=== PATIENT | female | born 1955 | race African-American/Black ===

== ENCOUNTER 2017-04-09 21:16 | Emergency (ER) | payer OTHER ==
[2017-04-09] MEDS ORDERED: FAMOTIDINE 20 MG TABLET PO ONE (23:46)
[2017-04-09] MEDS ORDERED: ASPIRIN 81 MG TABLET, CHEWABLE PO ONE (23:46)
--- NOTE | 2017-04-09 23:48 | ER Document Report ---
ED Cardiac - General Chief Complaint: Chest Pain Stated Complaint: CHEST PAIN Time Seen by Provider: 04/09/17 23:39 Notes: Patient is a 61-year-old female who comes emergency department for chief complaint of chest pain, she states she intermittently has pains in her chest almost daily but tonight while she was having her sleep study she felt a much sharper pain, she was given a dose of nitroglycerin, and she came to the emergency department. She states her pain is not sharp anymore and is now close to her baseline. She states the pain is mainly on the right side of her chest near the sternum and occasionally she will feel a radiation towards her right arm. She denies shortness of breath, injury, cough, fever. She had a stress test within the past month. She states she is uncertain if she has had a heart attack in the past, she does not smoke, she thinks her father had a heart attack. Past medical history of type 2 diabetes, hypertension, hyperlipidemia, obesity. TRAVEL OUTSIDE OF THE [place] IN LAST 30 DAYS: No - Related Data Allergies/Adverse Reactions: latex [Latex] Allergy (Verified 09/16/13 09:28) propoxyphene napsylate [From Darvocet-N 100] Allergy (Verified 09/16/13 09:28) Past Medical History - General Information source: Patient - Social History Smoking Status: Never Smoker Frequency of alcohol use: None Drug Abuse: None Lives with: Family Family History: Reviewed & Not Pertinent Patient has suicidal ideation: No Patient has homicidal ideation: No - Past Medical History Cardiac Medical History: Reports: Hx Hypertension Pulmonary Medical History: Reports: Hx Asthma Denies: Hx Tuberculosis Renal/ Medical History: Denies: Hx Peritoneal Dialysis GI Medical History: Reports: Hx Gastroesophageal Reflux Disease Past Surgical History: Reports: Hx Cholecystectomy, Hx Hysterectomy - complete - Immunizations Hx Diphtheria, Pertussis, Tetanus Vaccination: Yes Hx Pneumococcal Vaccination: 11/22/09 Review of Systems - Review of Systems Constitutional: No symptoms reported EENT: No symptoms reported Cardiovascular: See HPI Respiratory: No symptoms reported Gastrointestinal: No symptoms reported Genitourinary: No symptoms reported Female Genitourinary: No symptoms reported Musculoskeletal: No symptoms reported Skin: No symptoms reported Hematologic/Lymphatic: No symptoms reported Neurological/Psychological: No symptoms reported Physical Exam - Vital signs Vitals: Temp Pulse Resp BP Pulse Ox 98 F 98 20 144/75 H 95 04/09/17 21:29 04/09/17 21:29 04/09/17 21:29 04/09/17 21:29 04/09/17 21:29 Interpretation: Normal - General General appearance: Appears well In distress: None - Patient is alert and well-appearing - HEENT Head: Normocephalic, Atraumatic Eyes: Normal Conjunctiva: Normal Extraocular movements intact: Yes Eyelashes: Normal Pupils: PERRL Mouth/Lips: Normal Mucous membranes: Normal Pharynx: Normal Neck: Normal - Respiratory Respiratory status: No respiratory distress Chest status: Tender - There is mild anterior chest wall tenderness, slightly worse on the right side, no erythema, ecchymosis, or other abnormalities noted Breath sounds: Normal. No: Decreased air movement, Wheezing Chest palpation: Normal - Cardiovascular Rhythm: Regular. No: Tachycardia Heart sounds: Normal auscultation, S1 appreciated, S2 appreciated Murmur: No - Abdominal Inspection: Normal Distension: No distension Bowel sounds: Normal Tenderness: Nontender. No: Tender, Guarding Organomegaly: No organomegaly - Back Back: Normal, Nontender. No: Tender - Extremities General upper extremity: Normal inspection, Nontender, Normal ROM, Normal strength General lower extremity: Normal inspection, Nontender, Normal ROM, Normal strength - Neurological Neuro grossly intact: Yes Cognition: Normal Orientation: AAOx4 [place] Coma Scale Eye Opening: Spontaneous [place] Coma Scale Verbal: Oriented [place] Coma Scale Motor: Obeys Commands Yovani Coma Scale Total: 15 Speech: Normal Motor strength normal: LUE, RUE, LLE, RLE Sensory: Normal - Psychological Associated symptoms: Normal affect, Normal mood - Skin Skin Temperature: Warm Skin Moisture: Dry Skin Color: Normal Course - Re-evaluation Re-evalutation: EKG shows sinus rhythm with very slightly inverted T-wave in isolated lead to inferiorly, no consecutive T-wave inversions, no ST segment abnormalities, no other abnormalities noted. No comparison EKG. CBC, chemistry unremarkable, initial set of cardiac enzymes is negative. Chest x-ray unremarkable. On reexamination patient sleeping and easily aroused, denies any current complaints. Discussed with Dr. Razo. Repeat troponin also negative. On reevaluation patient states she feels "great ", has no complaints. 04/10/17 04:15 I called and spoke with patient's blacktop paver operator, Dr. Gloria, discussed HPI, discussed plans for patient to have a cardiac catheterization in about a week for workup of chest pains, discussed EKG, 2 sets of negative cardiac enzymes. He states that because of patient's negative workup that she can follow-up with him on Wednesday and keep her current scheduled plan. I discussed with patient, she states she feels great now, has no pain, that she wants to go home, that she is satisfied with workup and that she will follow-up on Wednesday. - Vital Signs Vital signs: Temp Pulse Resp BP Pulse Ox 98 F 98 17 118/56 L 98 04/09/17 21:29 04/09/17 21:29 04/10/17 04:01 04/10/17 04:01 04/10/17 04:01 - Laboratory Result Diagrams: 04/10/17 00:39 04/10/17 00:39 Laboratory results interpreted by me: 04/10/17 00:39 Hgb 11.6 L MCV 73 L MCH 23.5 L RDW 16.9 H Discharge - Discharge Clinical Impression: Chest pain Qualifiers: Chest pain type: unspecified Qualified Code(s): R07.9 - Chest pain, unspecified Condition: Stable Disposition: HOME, SELF-CARE Additional Instructions: Your workup today does not show any acute abnormality. Discussed with Dr. Gloria, please follow-up with him on Wednesday, keep your appointment for your cardiac catheterization as planned. Return to emergency department for any concerning or worsening symptoms. Referrals: CIRA HORNE MD [Primary Care Provider] - Follow up as needed
[2017-04-10 00:49] LABS: ABSOLUTE BASOPHILS # (AUTO) 0.1 10^3/uL (0.0-0.2); ABSOLUTE EOSINOPHILS # (AUTO) 0.2 10^3/uL (0.0-0.6); ABSOLUTE LYMPHOCYTES (AUTO) 2.4 10^3/uL (0.5-4.7); ABSOLUTE MONOCYTES (AUTO) 0.7 10^3/uL (0.1-1.4); ABSOLUTE NEUT (AUTO) 6.9 10^3/uL (1.7-8.2); BASOPHILS % (AUTO) 0.7 % (0-2); EOSINOPHILS % (AUTO) 2.1 % (0-6); HEMATOCRIT 36.1 % (36.0-47.0); HEMOGLOBIN 11.6 g/dL (12.0-15.5); HGB HCT DIFFERENCE -1.3; LYMPHOCYTES % (AUTO) 23.7 % (13-45); MEAN CORPUSCULAR HEMOGLOBIN 23.5 pg (27.0-33.4); MEAN CORPUSCULAR VOLUME 73 fl (80-97); MONOCYTES % (AUTO) 6.9 % (3-13); RED BLOOD COUNT 4.91 10^6/uL (3.72-5.28); RED CELL DISTRIBUTION WIDTH 16.9 % (11.5-14.0); SEGMENTED NEUTROPHILS % (AUTO) 66.6 % (42-78); WHITE BLOOD COUNT 10.4 10^3/uL (4.0-10.5)
[2017-04-10 01:02] LABS: ALANINE AMINOTRANSFERASE 34 U/L (9-52); ALBUMIN 3.8 g/dL (3.5-5.0); ALKALINE PHOSPHATASE 89 U/L (38-126); ANION GAP 13 (5-19); ASPARTATE AMINO TRANSFERASE 17 U/L (14-36); BILIRUBIN,DIRECT 0.3 mg/dL (0.0-0.4); BILIRUBIN,TOTAL 0.4 mg/dL (0.2-1.3); BLOOD UREA NITROGEN 18 mg/dL (7-20); CALCIUM 9.7 mg/dL (8.4-10.2); CARBON DIOXIDE 27 mmol/L (22-30); CHLORIDE 102 mmol/L (98-107); CREATINE KINASE 83 U/L (30-135); CREATININE RESULT 0.84 mg/dL (0.52-1.25); GLUCOSE 96 mg/dL (75-110); POTASSIUM 3.7 mmol/L (3.6-5.0); SODIUM 141.8 mmol/L (137-145); TOTAL PROTEIN 6.8 g/dL (6.3-8.2)
[2017-04-10 01:13] LABS: CREATINE KINASE MB 0.49 ng/mL (<4.55)
[2017-04-10 01:16] LABS: TROPONIN I < 0.012 ng/mL
[2017-04-10 06:09] VITALS: BP 130/73
--- NOTE | 2017-04-10 17:48 | EKG REPORT ---
SEVERITY:- BORDERLINE ECG - SINUS RHYTHM BORDERLINE T ABNORMALITIES, INFERIOR LEADS : Confirmed by: Jessica Murillo MD 10-Apr-2017 17:47:41
== END 2017-04-10 05:19 | disposition home or self-care (01) ==
LOC: ER 21:16
DX: R07.9 Chest pain, unspecified (principal); E66.9 Obesity, unspecified; I10 Essential (primary) hypertension; J45.909 Unspecified asthma, uncomplicated; E11.9 Type 2 diabetes mellitus without complications; Z91.040 Latex allergy status; Z90.49 Acquired absence of other specified parts of digestive tract; Z90.710 Acquired absence of both cervix and uterus
CPT/HCPCS: 36415; 71010; 80053; 82550; 82553; 84484; 85025; 93005; 93010; 99285

== ENCOUNTER 2017-11-13 16:34 | Emergency (ER) | payer OTHER ==
[2017-11-13] MEDS ORDERED: OXYCODONE-ACETAMINOPHEN 5-325 MG TABLET PO ONE (17:37)
--- NOTE | 2017-11-13 17:42 | ER Document Report ---
ED Extremity Problem, Lower - General Chief Complaint: Ankle Injury Stated Complaint: FALL LEFT ANKLE INJURY Time Seen by Provider: 11/13/17 17:27 Mode of Arrival: Wheelchair Information source: Patient Notes: 62-year-old female presents to ED for complaint of left ankle and foot pain after she stepped on a Lego block in the floor twisting her ankle falling down. She states she knows she takes blood pressure medicine and cholesterol medicine reflux medicine sinus medicine Percocet Flexeril but she does not know the names of most of her medicine and does not know the doses of her medications. She states she did not bring them with her she does know she takes Claritin and metformin but that does not know the doses. She also takes a purple inhaler for her asthma but does not know the dose or the name of it. TRAVEL OUTSIDE OF THE [place] IN LAST 30 DAYS: No - HPI Patient complains to provider of: Injury, Pain, Swelling Location: Ankle, Foot, Leg Occurred: Just prior to arrival Where: Home, Indoors Onset/Duration: Worse Quality of pain: Throbbing Severity: Severe Pain Level: 5 Context: Fell, Twisted Recent injury: Yes Associated symptoms: Painful ambulation Exacerbated by: Hanging down, Movement, Walking Relieved by: Nothing - Related Data Allergies/Adverse Reactions: latex [Latex] Allergy (Verified 11/13/17 16:36) propoxyphene napsylate [From Darvocet-N 100] Allergy (Verified 11/13/17 16:36) Past Medical History - General Information source: Patient - Social History Smoking Status: Never Smoker Cigarette use (# per day): No Chew tobacco use (# tins/day): No Smoking Education Provided: No Frequency of alcohol use: None Drug Abuse: None Lives with: Family Family History: Reviewed & Not Pertinent Patient has suicidal ideation: No Patient has homicidal ideation: No - Past Medical History Cardiac Medical History: Reports: Hx Hypercholesterolemia, Hx Hypertension Pulmonary Medical History: Reports: Hx Asthma, Hx Bronchitis, Hx Pneumonia EENT Medical History: Reports: None Neurological Medical History: Reports: None Endocrine Medical History: Reports: Hx Diabetes Mellitus Type 2 Renal/ Medical History: Reports: None Malignancy Medical History: Reports: None GI Medical History: Reports: Hx Gastroesophageal Reflux Disease, Hx Hiatal Hernia, Hx Colonoscopy, Hx Endoscopy Musculoskeltal Medical History: Reports Hx Arthritis, Reports Hx Musculoskeletal Deformity, Reports Hx Musculoskeletal Trauma Psychiatric Medical History: Reports: None Traumatic Medical History: Reports: None Infectious Medical History: Reports: None Past Surgical History: Reports: Hx Cholecystectomy, Hx Hysterectomy - complete - Immunizations Hx Diphtheria, Pertussis, Tetanus Vaccination: Yes Hx Pneumococcal Vaccination: 11/22/09 Review of Systems - Review of Systems Constitutional: No symptoms reported EENT: No symptoms reported Cardiovascular: No symptoms reported Respiratory: No symptoms reported Gastrointestinal: No symptoms reported Genitourinary: No symptoms reported Female Genitourinary: No symptoms reported Musculoskeletal: Ankle swelling - Ankle foot and lower leg swelling pain Skin: No symptoms reported Hematologic/Lymphatic: No symptoms reported Neurological/Psychological: No symptoms reported -: Yes All other systems reviewed and negative Physical Exam - Vital signs Vitals: Temp Pulse Resp BP Pulse Ox 98.4 F 93 18 138/70 H 96 11/13/17 16:38 11/13/17 16:38 11/13/17 16:38 11/13/17 16:38 11/13/17 16:38 Interpretation: Normal - General General appearance: Appears well, Alert - HEENT Head: Normocephalic, Atraumatic Eyes: Normal Pupils: PERRL - Respiratory Respiratory status: No respiratory distress Chest status: Nontender Breath sounds: Normal Chest palpation: Normal - Cardiovascular Rhythm: Regular Heart sounds: Normal auscultation Murmur: No - Abdominal Inspection: Normal Distension: No distension Bowel sounds: Normal Tenderness: Nontender Organomegaly: No organomegaly - Back Back: Normal, Nontender - Extremities General upper extremity: Normal inspection, Nontender, Normal color, Normal ROM , Normal temperature General lower extremity: Normal color, Normal temperature Calf: Tender, Ecchymosis Ankle: Tender, Ecchymosis, Edema, Limited ROM, Unable to bear weight Foot: Tender, Ecchymosis, Edema - Neurological Neuro grossly intact: Yes Cognition: Normal Orientation: AAOx4 [place] Coma Scale Eye Opening: Spontaneous Yovani Coma Scale Verbal: Oriented [place] Coma Scale Motor: Obeys Commands [place] Coma Scale Total: 15 Speech: Normal Motor strength normal: LUE, RUE, LLE, RLE Sensory: Normal - Psychological Associated symptoms: Normal affect, Normal mood - Skin Skin Temperature: Warm Skin Moisture: Dry Skin Color: Normal Course - Re-evaluation Re-evalutation: 11/13/17 19:[address] Shaw who suggested posterior ankle splint. Patient is on pain management and has Percocet at home. She was given Percocet while in the emergency room. Her ankle has a posterior splint applied. Patient is been given instructions for elevation ice and to follow-up with the orthopedics on Wednesday by telephone to schedule a follow-up appointment. - Vital Signs Vital signs: Temp Pulse Resp BP Pulse Ox 98.2 F 93 18 157/86 H 95 11/13/17 19:14 11/13/17 19:14 11/13/17 19:14 11/13/17 19:14 11/13/17 19:14 - Diagnostic Test Radiology reviewed: Image reviewed, Reports reviewed Procedures - Immobilization Left Ankle Time completed: 19:01 Immobilizer type: Posterior ankle Performed by: PCT Post-Proc Neuro Vasc Exam: Normal Alignment checked and good: Yes Discharge - Discharge Clinical Impression: Fracture of distal fibula Qualifiers: Encounter type: initial encounter Fracture type: closed Fracture morphology: unspecified fracture morphology Laterality: left Qualified Code(s): S82.832A - Other fracture of upper and lower end of left fibula, initial encounter for closed fracture Medial malleolar fracture Qualifiers: Encounter type: initial encounter Fracture type: closed Fracture alignment: nondisplaced Laterality: left Qualified Code(s): S82.55XA - Nondisplaced fracture of medial malleolus of left tibia, initial encounter for closed fracture HTN (hypertension) Qualifiers: Hypertension type: unspecified Qualified Code(s): I10 - Essential (primary) hypertension Condition: Stable Disposition: HOME, SELF-CARE Additional Instructions: Fracture of Distal Fibula You have a fracture at the end of the fibula, the smaller bone in the lower leg. The fracture is across the bony bump on the outer side of the ankle. This fracture will usually heal well, but must be protected from the pull of ligaments and tendons at the ankle. If this fracture rotates out of position (or is felt likely to rotate), it must be operated on. Initially, the extremity should be kept elevated, with ice packs applied frequently. This fracture is usually treated with a cast or walking boot. If a walking boot has been selected, it's critical that it NOT be removed without the doctor's approval, not even for sleeping or baths. Healing of this fracture takes about four to eight weeks. Younger patients heal more quickly. An X-ray is usually required during healing to check for complications and to assess healing. Call the doctor or return at once if there is severe swelling, increasing pain, or numbness in the foot. You also have a medial malleolus fracture of the tibia. I have given you the x- ray reports on this fractures. SPLINT PRECAUTIONS: A splint has been placed. This will protect the area while healing begins. Your problem does NOT normally require a cast. It MUST, however, be held still! Keep the splint on ALL THE TIME until instructed to remove it by the doctor. As you begin to use the area, be careful. You shouldn't do anything which causes discomfort -- you may disturb the injury even with the splint in place. After the initial period of rest and elevation, if splint does not prevent pain when you move, come back. You may require placement of a different splint , or a cast. If there is unexpected severe pain, or numbness, discoloration, or swelling beyond the splint, you should return at once. If you feel that the splint has broken or become loose, come back. USE OF CRUTCHES: The doctor has recommended that you not bear weight at this time. You will need to use crutches. Adjust the crutches so the tops come to about two inches under the armpit while you are standing upright. Use your hands -- not your armpits -- to support your weight. To get into a chair, support yourself with one crutch on the injured side. Hold the chair with the other hand, then lower yourself while putting all your weight on the good leg. Going up stairs is `good leg up, step up, then bring up crutches and bad leg.' Down stairs is `bad leg and crutches down, then bring good leg down.' If you develop numbness or swelling in an arm or hand, you are using the crutches incorrectly. Return if you are having any problems with the crutches. ICE & ELEVATION: Apply ice packs frequently against the painful area. Many different schedules are recommended, such as "20 minutes on, 20 minutes off" or "one hour ice, two hours rest." If you need to work, you may need to go longer between ice treatments. You should plan to have the area ice packed AT LEAST one- fourth of the time. The ice should be applied over the wrap, tape, or splint, or over a layer of cloth -- not directly against the skin. Some ice bags have a built-in cloth and can be put directly on the skin. Your injured part should be elevated as much as possible over the next 48 hours. Try to keep the injury above the level of the heart. Avoid use of the injured area. Elevation and rest will decrease the swelling. USE OF [id number] IBUPROFEN: Ibuprofen (Advil, Nuprin, Medipren, Motrin IB) is a medication for fever and pain control. In addition, it has anti- inflammatory effects which may be beneficial, especially in the treatment of injuries. It's best to take ibuprofen with food. Persons with ulcer disease or allergy to aspirin should notify their physician of this before taking ibuprofen. Ibuprofen can be given every four to six hours, for a total of four doses daily. Age Pain or fever dose Antiinflammatory dose 6-8 yr 200 mg (1 tab) 200 mg (1 tab) 9-11 yr 200 mg (1 tab) 200-400 mg (1-2 tab) 11-14 yr 200-400 mg (1-2 tab) 400 mg (2 tab) 15-adult 400 mg (2 tab) 600 mg (3 tab) ORAL NARCOTIC MEDICATION: You have been given a Percocet for pain control. Take your medication you have at home which is also Percocet for your pain. This medication is a narcotic. It's best taken with food, as nausea can result if taken on an empty stomach. Don't operate machinery or drive within six hours of taking this medication. Do not combine this medicine with alcohol, or with any medication which can cause sedation (such as cold tablets or sleeping pills) unless you get permission from the physician. Narcotics tend to cause constipation. If possible, drink plenty of fluids and eat a diet high in fiber and fruits. Please be aware that prescription narcotics also have the potential for abuse. People become addicted to these medications because of the general sense of wellbeing that they induce. This feeling along with a significant reduction in tension, anxiety, and aggression provides a stimulating seductive quality to these drugs. Once your pain is under control, we encourage you to discard your unused narcotics. FOLLOW-UP CARE: If you have been referred to a physician for follow-up care, call the physician s office for an appointment as you were instructed or within the next two days. If you experience worsening or a significant change in your symptoms, notify the physician immediately or return to the Emergency Department at any time for re-evaluation. Forms: Elevated Blood Pressure Referrals: CIRA HORNE MD [Primary Care Provider] - Follow up as needed AUDIE AHMADI DO [ACTIVE STAFF] - Follow up as needed
--- NOTE | 2017-11-13 18:29 | RADIOLOGY REPORT (SQ) ---
EXAM DESCRIPTION: FOOT LEFT COMPLETE COMPLETED DATE/TIME: 11/13/2017 6:15 pm REASON FOR STUDY: fall injury to left foot and ankle metatarsal tend COMPARISON: None. NUMBER OF VIEWS: Three views. TECHNIQUE: AP, lateral and oblique radiographic images acquired of the left foot. LIMITATIONS: None. FINDINGS: MINERALIZATION: Osteopenia. BONES: Fracture of the medial malleolus. JOINTS: No effusions. SOFT TISSUES: No soft tissue swelling. No foreign body. OTHER: No other significant finding. IMPRESSION: Ankle fracture. TECHNICAL DOCUMENTATION: JOB ID: [id number] [employer]- All Rights Reserved
--- NOTE | 2017-11-13 18:30 | RADIOLOGY REPORT (SQ) ---
EXAM DESCRIPTION: ANKLE LEFT COMPLETE COMPLETED DATE/TIME: 11/13/2017 6:16 pm REASON FOR STUDY: fall injury to left foot and ankle metatarsal tend COMPARISON: None. NUMBER OF VIEWS: Three views. TECHNIQUE: AP, lateral, and oblique radiographic images acquired of the left ankle. LIMITATIONS: None. FINDINGS: There are nondisplaced fractures of the medial malleolus and distal fibula at level of syn desmosis. IMPRESSION: Fractures of the distal fibula and medial malleolus. TECHNICAL DOCUMENTATION: JOB ID: [id number] [email or web address]- All Rights Reserved
[2017-11-13 19:17] VITALS: BP 157/86
== END 2017-11-13 19:15 | disposition home or self-care (01) ==
LOC: ER 16:34
DX: S82.55XA Nondisplaced fracture of medial malleolus of left tibia, initial encounter for closed fracture (principal); S82.832A Other fracture of upper and lower end of left fibula, initial encounter for closed fracture; W18.31XA Fall on same level due to stepping on an object, initial encounter; Y93.G3 Activity, cooking and baking; Y92.000 Kitchen of unspecified non-institutional (private) residence as the place of occurrence of the external cause; I10 Essential (primary) hypertension; E78.00 Pure hypercholesterolemia, unspecified; K21.9 Gastro-esophageal reflux disease without esophagitis; J45.909 Unspecified asthma, uncomplicated; E11.9 Type 2 diabetes mellitus without complications; Z79.84 Long term (current) use of oral hypoglycemic drugs; Z79.891 Long term (current) use of opiate analgesic; Z79.899 Other long term (current) drug therapy; Z91.040 Latex allergy status; Z88.5 Allergy status to narcotic agent
CPT/HCPCS: 99283

== ENCOUNTER 2018-02-13 17:15 | Emergency (ER) | payer OTHER ==
--- NOTE | 2018-02-13 17:56 | RADIOLOGY REPORT (SQ) ---
EXAM DESCRIPTION: WRIST RIGHT 3 VIEWS COMPLETED DATE/TIME: 02/13/2018 5:39 pm REASON FOR STUDY: fall COMPARISON: None. NUMBER OF VIEWS: Three views. TECHNIQUE: AP, lateral, and oblique radiographic images acquired of the right wrist. LIMITATIONS: None. FINDINGS: MINERALIZATION: Normal. BONES: No acute fracture or dislocation. No worrisome bone lesions. Normal alignment. SOFT TISSUES: Diffuse dorsal soft tissue swelling. No foreign body. OTHER: Osteoarthritis at the 1st carpometacarpal joint. IMPRESSION: Dorsal soft tissue swelling. No acute fracture. TECHNICAL DOCUMENTATION: JOB ID: [id number] [employer]- All Rights Reserved Reading location - IP/workstation name: [email or web address]
--- NOTE | 2018-02-13 17:58 | RADIOLOGY REPORT (SQ) ---
EXAM DESCRIPTION: CT HEAD WITHOUT COMPLETED DATE/TIME: 02/13/2018 5:48 pm REASON FOR STUDY: fall COMPARISON: None. TECHNIQUE: Axial images acquired through the brain without intravenous contrast. Images reviewed wi th bone, brain and subdural windows. Images stored on PACS. All CT scanners at this facility use dose modulation, iterative reconstruction, and/or weight based d osing when appropriate to reduce radiation dose to as low as reasonably achievable (ALARA). [facility]: Dose Right [facility]: CareDose [facility]: Dose Right [facility]: Teradose 4D [facility]: [facility] [employer] RADIATION DOSE: CT Rad equipment meets quality standard of care and radiation dose reduction techniq ues were employed. CTDIvol: 64.6 mGy. DLP: 1163 mGy-cm. mGy. LIMITATIONS: None. FINDINGS: VENTRICLES: Normal size and contour. CEREBRUM: No masses. No hemorrhage. No midline shift. No evidence for acute infarction. Normal gra y/white matter differentiation. No areas of low density in the white matter. CEREBELLUM: No masses. No hemorrhage. No alteration of density. No evidence for acute infarction. EXTRAAXIAL SPACES: No fluid collections. No masses. ORBITS AND GLOBE: No intra- or extraconal masses. Normal contour of globe without masses. CALVARIUM: No fracture. PARANASAL SINUSES: No fluid or mucosal thickening. SOFT TISSUES: No mass or hematoma. OTHER: No other significant finding. IMPRESSION: NORMAL BRAIN CT WITHOUT CONTRAST. EVIDENCE OF ACUTE STROKE: NO. COMMENT: Quality ID # [id number]: Final reports with documentation of one or more dose reduction techniques (e.g., Automated exposure control, adjustment of the mA and/or kV according to patient size, use of iterative reconstruction technique) TECHNICAL DOCUMENTATION: JOB ID: [id number] [employer]- All Rights Reserved Reading location - IP/workstation name: [email or web address]
--- NOTE | 2018-02-13 18:20 | ER Document Report ---
ED General - General Chief Complaint: Fall Stated Complaint: FALL HEAD PAIN Time Seen by Provider: 02/13/18 17:21 TRAVEL OUTSIDE OF THE [place] IN LAST 30 DAYS: No - HPI Patient complains to provider of: Fall Notes: Patient coming in has a walking boot on the left foot states she was at a shopping mall when she was trying to push a cart and was not moving and then eventually put an unfortunate that the court moved lost her balance fell backwards hitting her head and injuring her right wrist. Patient denies any loss consciousness states she did feel dizzy and lightheaded after hitting her head. Patient currently states the back denies head pain chest pain passing out abdominal pain. Patient resting comfortably upon my evaluation - Related Data Allergies/Adverse Reactions: latex [Latex] Allergy (Verified 02/13/18 17:21) propoxyphene napsylate [From Darvocet-N 100] Allergy (Verified 02/13/18 17:21) Past Medical History - Social History Smoking Status: Never Smoker Chew tobacco use (# tins/day): No Frequency of alcohol use: None Drug Abuse: None Family History: Reviewed & Not Pertinent Patient has suicidal ideation: No Patient has homicidal ideation: No - Past Medical History Cardiac Medical History: Reports: Hx Hypercholesterolemia, Hx Hypertension Pulmonary Medical History: Reports: Hx Asthma, Hx Bronchitis, Hx Pneumonia Denies: Hx Tuberculosis Endocrine Medical History: Reports: Hx Diabetes Mellitus Type 2 Renal/ Medical History: Denies: Hx Peritoneal Dialysis GI Medical History: Reports: Hx Gastroesophageal Reflux Disease, Hx Hiatal Hernia, Hx Colonoscopy, Hx Endoscopy Musculoskeltal Medical History: Reports Hx Arthritis, Reports Hx Musculoskeletal Deformity, Reports Hx Musculoskeletal Trauma Past Surgical History: Reports: Hx Cholecystectomy, Hx Hysterectomy - Immunizations Hx Diphtheria, Pertussis, Tetanus Vaccination: Yes Hx Pneumococcal Vaccination: 11/22/09 Review of Systems - Review of Systems Constitutional: Other - Hip pain wrist pain EENT: No symptoms reported Cardiovascular: No symptoms reported Respiratory: No symptoms reported Gastrointestinal: No symptoms reported Genitourinary: No symptoms reported Female Genitourinary: No symptoms reported Musculoskeletal: No symptoms reported Skin: No symptoms reported Hematologic/Lymphatic: No symptoms reported Neurological/Psychological: No symptoms reported -: Yes All other systems reviewed and negative Physical Exam - Vital signs Vitals: Temp Pulse Resp BP Pulse Ox 98.9 F 95 16 147/70 H 98 03/25/18 17:18 02/13/18 17:18 02/13/18 17:18 02/13/18 17:18 02/13/18 17:18 Interpretation: Normal - General General appearance: Appears well, Alert - HEENT Head: Normocephalic, Atraumatic Eyes: Normal Pupils: PERRL Neck: Other - No midline tenderness clear by Nexus - Respiratory Respiratory status: No respiratory distress Chest status: Nontender Breath sounds: Normal Chest palpation: Normal - Cardiovascular Rhythm: Regular Heart sounds: Normal auscultation Murmur: No - Abdominal Inspection: Normal Distension: No distension Bowel sounds: Normal Tenderness: Nontender Organomegaly: No organomegaly - Back Back: Normal, Nontender - Extremities General upper extremity: Tender, Normal color, Normal ROM, Normal temperature. No: Normal inspection - Slight swelling to the right wrist tenderness to palpation along the dorsum of the right wrist otherwise extremity examination normal left unaffected General lower extremity: Normal inspection, Nontender, Normal color, Normal ROM , Normal temperature, Normal weight bearing. No: Lucia's sign - Neurological Neuro grossly intact: Yes Cognition: Normal Orientation: AAOx4 Yovani Coma Scale Eye Opening: Spontaneous Yovani Coma Scale Verbal: Oriented Yovani Coma Scale Motor: Obeys Commands Yovani Coma Scale Total: 15 Speech: Normal Motor strength normal: LUE, RUE, LLE, RLE Sensory: Normal - Psychological Associated symptoms: Normal affect, Normal mood - Skin Skin Temperature: Warm Skin Moisture: Dry Skin Color: Normal Course - Re-evaluation Re-evalutation: 02/13/18 23:47 No signs of acute injury on radiographical studies. Patient will be discharged on Tylenol Motrin for pain control. - Vital Signs Vital signs: Temp Pulse Resp BP Pulse Ox 98.6 F 84 18 128/76 H 100 02/13/18 18:31 02/13/18 18:31 02/13/18 18:31 02/13/18 18:31 02/13/18 18:31 Discharge - Discharge Clinical Impression: Right wrist pain Head pain Qualifiers: Headache type: unspecified Headache chronicity pattern: unspecified pattern Intractability: not intractable Qualified Code(s): R51 - Headache Condition: Good Disposition: HOME, SELF-CARE Instructions: Contusion ([facility]), Head Injury Precautions ([facility]), Ice & Elevation ( [facility]), Wrist Sprain ([facility]) Additional Instructions: Your x-rays and head CT are negative today. More likely having wrist sprain I would recommend using the splint to be provided with you here in the ER for comfort if he did not get any relief of her pain or comfort while wearing splint while out and about the community he did not have to wear it. I recommend follow-up with your primary care physician in 1 week if he continued to have pain for another x-ray. Tylenol Motrin for pain control he may also elevate place ice packs warm packs on your wrist. Referrals: CIRA HORNE MD [Primary Care Provider] - Follow up in 1 week
[2018-02-13 18:32] VITALS: BP 128/76
== END 2018-02-13 18:32 | disposition home or self-care (01) ==
LOC: ER 17:15
DX: M25.531 Pain in right wrist (principal); M25.431 Effusion, right wrist; R51 Headache; M25.559 Pain in unspecified hip; W18.39XA Other fall on same level, initial encounter; Y93.89 Activity, other specified; Y92.59 Other trade areas as the place of occurrence of the external cause; Z91.040 Latex allergy status; Z88.5 Allergy status to narcotic agent; I10 Essential (primary) hypertension; J45.909 Unspecified asthma, uncomplicated; E11.9 Type 2 diabetes mellitus without complications
CPT/HCPCS: 70450; 99284

== ENCOUNTER → 2018-12-27 | Outpatient (CLI) | payer MEDICARE ==
--- NOTE | 2018-12-27 11:11 | WOMENS IMAGING REPORT ---
EXAM DESCRIPTION: BILAT SCREENING MAMMO W/CAD COMPLETED DATE/TIME: 12/27/2018 10:33 am REASON FOR STUDY: ROUTINE BILATERAL SCREENING,Z12.31 Z12.31 ENCNTR SCREEN MAMMOGRAM FOR MALIGNANT N EOPLASM OF EVANGELINA COMPARISON: 2012 TECHNIQUE: Standard craniocaudal and mediolateral oblique views of each breast recorded using [employer] [place] l acquisition. LIMITATIONS: None. FINDINGS: Findings present which are benign by mammographic criteria. No suspicious masses, calcifi cations or architectural distortion. Pertinent benign findings: Left cyst. Read with the assistance of CAD. .[facility] - R2 Cenova Version 1.3 .[facility] - R2 Cenova Version 2.1 .[facility] - R2 Cenova Version 2.4 .[facility] - R2 Cenova Version 2.4 .[facility] - R2 [employer] Superintendent Version 9.2 Benign mammographic findings may include one or more of the following: Smooth masses, popcorn/rim/co arse calcifications, asymmetries, post-procedure changes, and lesions with long-standing stability. IMPRESSION: BENIGN MAMMOGRAPHIC FINDINGS. BIRADS 2 BREAST DENSITY: a. The breasts are almost entirely fatty. BIRAD: 2 BENIGN FINDING(S) RECOMMENDATION: ROUTINE SCREENING COMMENT: The patient has been notified of the results by letter per SA requirements. Additional no tification policies are in place for contacting patient with suspicious or incomplete findings. Quality ID #[id number]: The [employer] recommends an annual screening mammogram for women aged 40 years or over. This facility utilizes a reminder system to ensure that all patients receive reminder letters, and/or direct phone calls for appointments. This includes reminders for routine scr eening mammograms, diagnostic mammograms, or other Breast Imaging Interventions when appropriate. Th is patient will be placed in the appropriate reminder system. The [employer] (ACR) has developed recommendations for screening MRI of the breast s in certain patient populations, to be used in conjunction with mammography. Breast MRI surveillanc e may be appropriate for women with more than 20% lifetime risk of developing breast cancer as deter mined by genetic testing, significant family history of the disease, or history of mantle radiation f or Hodgkins Disease. ACR Practice Guidelines 2008. TECHNICAL DOCUMENTATION: FINDING NUMBER: (1) ASSESSMENT: (1) JOB ID: [id number] [employer]- All Rights Reserved Reading location - IP/workstation name: [email or web address]
== END ==
LOC: WI 10:08
PROVIDERS: ATTEND Internal Medicine
DX: Z12.31 Encounter for screening mammogram for malignant neoplasm of breast (principal)
CPT/HCPCS: 77067

== ENCOUNTER 2019-02-28 21:24 | Emergency (ER) | payer MEDICARE ==
[2019-02-28 21:56] VITALS: BP 139/75
== END 2019-03-01 01:01 | disposition left against medical advice (07) ==
LOC: ER 21:24
DX: Z53.21 Procedure and treatment not carried out due to patient leaving prior to being seen by health care provider (principal)

== ENCOUNTER → 2019-03-03 | Outpatient (CLI) | payer MEDICARE ==
--- NOTE | 2019-03-03 08:57 | WOMENS IMAGING REPORT ---
EXAM DESCRIPTION: U/S PELVIS NON-OB LIMITED COMPLETED DATE/TIME: 03/03/2019 8:37 am REASON FOR STUDY: R10.84 GENERALIZED ABDOMINAL PAIN R10.2 PELVIC AND PERINEAL PAINR10.30 LOWER ABD OMINAL PAIN, UNSPECIFIED COMPARISON: 05/14/2016. TECHNIQUE: Dynamic and static grayscale images acquired of the pelvis via transabdominal approach an d recorded on PACS. Additional selected color Doppler and spectral images recorded. LIMITATIONS: None. FINDINGS: The uterus and ovaries are surgically absent. No solid mass or fluid collection. Limited images of the bladder unremarkable. IMPRESSION: NO SONOGRAPHIC ABNORMALITY IN THE PELVIS. TECHNICAL DOCUMENTATION: JOB ID: [id number] [employer]- All Rights Reserved Rev-04/08 Reading location - IP/workstation name: [email or web address]
--- NOTE | 2019-03-03 08:59 | WOMENS IMAGING REPORT ---
EXAM DESCRIPTION: U/S ABDOMEN TOTAL COMPLETED DATE/TIME: 03/03/2019 8:37 am REASON FOR STUDY: R10.84 GENERALIZED ABDOMINAL PAIN R10.2 PELVIC AND PERINEAL PAIN R10.30 LOWER AB DOMINAL PAIN, UNSPECIFIED COMPARISON: 05/14/2016. TECHNIQUE: Dynamic and static grayscale images acquired of the abdomen and recorded on PACS. Additio nal selected color Doppler and spectral images recorded. Note: Exam does not meet criteria for a complete doppler/duplex scan LIMITATIONS: Study limited due to acoustical interference from fat or from air in the bowel. FINDINGS: PANCREAS: Portions are poorly seen secondary to acoustical interference from fat or from a ir in the bowel. No visualized masses. Duct normal caliber as seen. LIVER: Echotexture is coarse with increased echogenicity consistent with fatty infiltration. LIVER VASCULATURE: Normal directional flow of the main portal vein and hepatic veins. GALLBLADDER: Surgically absent. ULTRASOUND-DETECTED JORDAN'S SIGN: Not applicable. INTRAHEPATIC DUCTS AND COMMON DUCT: CBD and intrahepatic ducts normal caliber. No filling defects. INFERIOR VENA CAVA: Obscured by bowel gas. AORTA: Obscured by bowel gas. RIGHT KIDNEY: Normal size. Normal echogenicity. No solid or suspicious masses. No hydronephrosis. No calcifications. LEFT KIDNEY: Normal size. Normal echogenicity. No solid or suspicious masses. No hydronephrosis. No calcifications. SPLEEN:Normal size. No solid masses. PERITONEAL AND PLEURAL SPACES: No ascites or effusions. OTHER: No other significant finding. IMPRESSION: FATTY INFILTRATION OF THE LIVER. NO OTHER SIGNIFICANT FINDING IN THE VISUALIZED ABDOMEN. TECHNICAL DOCUMENTATION: JOB ID: [id number] [employer]- All Rights Reserved Reading location - IP/workstation name: [email or web address]
== END ==
LOC: RAD 06:56
PROVIDERS: ATTEND Internal Medicine
DX: K76.0 Fatty (change of) liver, not elsewhere classified (principal); R10.84 Generalized abdominal pain
CPT/HCPCS: 76700; 76857

== ENCOUNTER → 2019-10-05 | Outpatient (CLI) | payer MEDICARE ==
--- NOTE | 2019-10-05 14:43 | RADIOLOGY REPORT (SQ) ---
EXAM DESCRIPTION: SHOULDER LEFT 2 OR MORE VIEWS COMPLETED DATE/TIME: 10/05/2019 1:21 pm REASON FOR STUDY: ANKYLOSIS, LEFT SHOULDER M24.612 ANKYLOSIS, LEFT SHOULDER COMPARISON: Left shoulder three views 03/21/2013 NUMBER OF VIEWS: Three views. TECHNIQUE: Internal rotation, external rotation, and Y view images acquired of the left shoulder. LIMITATIONS: None. FINDINGS: MINERALIZATION: Normal. BONES: No acute fracture. There is bulky bony spurring along the undersurface of the acromion JOINTS: No glenohumeral dislocation. Mild bony spurring at the glenohumeral joint. Mild bony spurri ng at the acromioclavicular joint. Bony spurring along the humeral head. VISUALIZED LUNGS AND RIBS: No pneumothorax. No rib fracture. SOFT TISSUES: No radiopaque foreign body. OTHER: No other significant finding. IMPRESSION: Osteoarthritis left shoulder TECHNICAL DOCUMENTATION: JOB ID: [id number] [employer]- All Rights Reserved Reading location - IP/workstation name: [email or web address]
== END ==
LOC: OD 13:09
PROVIDERS: ATTEND Internal Medicine
DX: M24.612 Ankylosis, left shoulder (principal); M19.012 Primary osteoarthritis, left shoulder

== ENCOUNTER → 2019-12-22 | Outpatient (CLI) | payer MEDICARE ==
--- NOTE | 2019-12-22 12:07 | RADIOLOGY REPORT (SQ) ---
EXAM DESCRIPTION: CT HEAD WITHOUT COMPLETED DATE/TIME: 12/22/2019 11:57 am REASON FOR STUDY: OTHER SPECIFIED INJURIES OF HEAD, INITIAL ENCOUNTER S09.8XXA OTHER SPECIFIED INJU JUANA OF HEAD, INITIAL ENCOUNTER COMPARISON: CT of the head without contrast from 02/13/2018. TECHNIQUE: Axial images acquired through the brain without intravenous contrast. Images reviewed wi th bone, brain and subdural windows. Additional sagittal and coronal reconstructions were generated. Images stored on PACS. All CT scanners at this facility use dose modulation, iterative reconstruction, and/or weight based d osing when appropriate to reduce radiation dose to as low as reasonably achievable (ALARA). [facility]: Dose Right [facility]: CareDose [facility]: Dose Right [facility]: Teradose 4D [facility]: DNAnexus RADIATION DOSE: CT Rad equipment meets quality standard of care and radiation dose reduction techniq ues were employed. CTDIvol: 53.2 mGy. DLP: 1070 mGy-cm. LIMITATIONS: None. FINDINGS: There is no acute intracranial hemorrhage, vascular territorial infarct, extra-axial fluid collection, mass effect or midline shift. There is no effacement of the cerebral sulci or basal sub arachnoid cisterns. The mcdowell-white matter differentiation is preserved. The caliber the ventricles is concordant with the degree of sulcation. There is soft tissue swelling over the left parietal lobe ; there is no associated calvarial fracture . The orbits and globes are intact. There is hyperostosis frontalis interna and a right frontal sin us osteoma. The paranasal sinuses and the mastoid air cells are otherwise clear. IMPRESSION: Soft tissue swelling over the left parietal lobe without an associated calvarial fractur e or acute intracranial abnormality. EVIDENCE OF ACUTE STROKE: NO. COMMENT: Quality ID # [id number]: Final reports with documentation of one or more dose reduction techniques (e.g., Automated exposure control, adjustment of the mA and/or kV according to patient size, use of iterative reconstruction technique) TECHNICAL DOCUMENTATION: JOB ID: [id number] [employer]- All Rights Reserved Reading location - IP/workstation name: [email or web address] [email or web address] BEDS AT THE [facility]
== END ==
LOC: RAD 11:37
PROVIDERS: ATTEND Internal Medicine
DX: S09.8XXA Other specified injuries of head, initial encounter (principal); X58.XXXA Exposure to other specified factors, initial encounter
CPT/HCPCS: 70450

== ENCOUNTER → 2019-12-25 | Outpatient (CLI) | payer MEDICARE ==
--- NOTE | 2019-12-25 12:58 | RADIOLOGY REPORT (SQ) ---
EXAM DESCRIPTION: HIP RIGHT AP/LATERAL COMPLETED DATE/TIME: 12/25/2019 12:49 pm REASON FOR STUDY: M19.91 PRIMARY OSTEOARTHRITIS, UNSPECIFIED SITE COMPARISON: None. NUMBER OF VIEWS: Two views. TECHNIQUE: AP pelvis and additional frog-leg view of the right hip. LIMITATIONS: None. FINDINGS: MINERALIZATION: Normal. RIGHT HIP: No fracture or dislocation. No worrisome bone lesions. LEFT HIP: No fracture or dislocation. No worrisome bone lesions. PUBIS AND ISCHIUM: No fracture. Degenerative changes at the pubic symphysis. PELVIS: No fracture. SACRUM: No fracture or dislocation. No worrisome bone lesions. LOWER LUMBAR SPINE: No acute findings. Lower lumbar spondylosis and facet arthropathy. SOFT TISSUES: No findings. OTHER: Surgical clip and punctate metallic density overlie right iliac bone. IMPRESSION: No definite acute bony abnormality. Pelvic fractures are often occult on plain radiographs. If high clinical concern or inability to flo r weight consider CT or MR for further characterization. TECHNICAL DOCUMENTATION: JOB ID: [id number] [employer]- All Rights Reserved Reading location - IP/workstation name: [email or web address]
--- NOTE | 2019-12-25 13:36 | RADIOLOGY REPORT (SQ) ---
EXAM DESCRIPTION: CERV SP 4 OR 5 VIEWS COMPLETED DATE/TIME: 12/25/2019 12:48 pm REASON FOR STUDY: M19.91 PRIMARY OSTEOARTHRITIS, UNSPECIFIED SITE COMPARISON: None. NUMBER OF VIEWS: Five views. TECHNIQUE: AP, lateral, obliques and odontoid radiographic images acquired of the cervical spine. LIMITATIONS: None. FINDINGS: MINERALIZATION: Normal. ALIGNMENT: Anatomic. VERTEBRAE: Questionable defect of the posterior arch of C1 on the right seen best on the odontoid vie w. No other definite acute bony abnormality. . DISCS: Mild disc height loss greatest at C5 through C7. Bulky anterior osteophyte at C5-6. FORAMINA: Mild bilateral osseous neural foraminal narrowing at C5-6 secondary to uncovertebral and fa cet hypertrophy. LATERAL AND POSTERIOR ELEMENTS: Facets, lateral masses and spinous processes without significant find ings. HARDWARE: None in the spine. SOFT TISSUES: No masses or calcifications. Lung apices clear. OTHER: No other significant finding. IMPRESSION: 1. Questionable cortical defect of the posterior arch of C1. If high clinical concern for acute osseous abnormality recommend CT. 2. Mild to moderate degenerative changes greatest at C5-6 with associated mild osseous neural forami nal narrowing. TECHNICAL DOCUMENTATION: JOB ID: [id number] [employer]- All Rights Reserved Reading location - IP/workstation name: [email or web address]
== END ==
LOC: RAD 12:26
PROVIDERS: ATTEND Internal Medicine
DX: M19.91 Primary osteoarthritis, unspecified site (principal)
CPT/HCPCS: 72050

== ENCOUNTER 2020-02-20 15:48 | Emergency (ER) | payer MEDICARE ==
[2020-02-20] MEDS ORDERED: ACETAMINOPHEN 325 MG TABLET PO ONE (16:04)
--- NOTE | 2020-02-20 16:04 | ER Document Report ---
ED General - General Chief Complaint: Hip Pain Stated Complaint: RIGHT HIP PAIN Time Seen by Provider: 02/20/20 15:52 Primary Care Provider: CIRA HORNE MD [Primary Care Provider] - Follow up tomorrow Mode of Arrival: Ambulatory Information source: Patient Notes: 64-year-old female presents emergency department with complaints of productive cough with yellow sputum and fever since last Wednesday. She reports she called Dr. Horne last week who placed her on antibiotics, Augmentin. She reports she has been taking the augmentin as prescribed and has 1 more dose tomorrow. She denies headache, sore throat, vomiting and diarrhea. Denies chest pain, denies SOB, Denies abdominal pain. Reports she does not feel sick. Reports she is eating drinking voiding bowel movement as normal. She reports her temperature was 104 last week. She has not taken it today. Has not taken any Tylenol Motrin for the fever. Reports she has a good sense of taste and is eating well. Patient reports her blood glucose is well controlled. Patient reports that her right hip is hurting because her knee gave out last week which irritated her right hip. Patient reports she takes pain medication for history of chronic back pain. Patient did receive the flu vaccine this year. Patient denies any Covid exposure. She has not had any recent trips. 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 TRAVEL OUTSIDE OF THE [place] IN LAST 30 DAYS: No - HPI Onset: Last week Onset/Duration: Persistent Associated symptoms: Nonproductive cough, Fever Exacerbated by: Denies Relieved by: Denies Similar symptoms previously: Yes Recently seen / treated by doctor: No - Related Data Allergies/Adverse Reactions: latex [Latex] Allergy (Verified 02/20/20 15:53) propoxyphene napsylate [From Darvocet-N 100] Allergy (Verified 02/20/20 15:53) Past Medical History - General Information source: Patient - Social History Smoking Status: Former Smoker Cigarette use (# per day): No Frequency of alcohol use: None Drug Abuse: None Lives with: Family Family History: Reviewed & Not Pertinent Patient has suicidal ideation: No Patient has homicidal ideation: No - Past Medical History Cardiac Medical History: Reports: Hx Hypercholesterolemia, Hx Hypertension Pulmonary Medical History: Reports: Hx Asthma, Hx Bronchitis, Hx Pneumonia Denies: Hx Tuberculosis Endocrine Medical History: Reports: Hx Diabetes Mellitus Type 2 Renal/ Medical History: Denies: Hx Peritoneal Dialysis GI Medical History: Reports: Hx Gastroesophageal Reflux Disease, Hx Hiatal Hernia, Hx Colonoscopy, Hx Endoscopy Musculoskeletal Medical History: Reports Hx Arthritis, Reports Hx Musculoskeletal Deformity, Reports Hx Musculoskeletal Trauma Past Surgical History: Reports: Hx Cholecystectomy, Hx Hysterectomy - Immunizations Hx Diphtheria, Pertussis, Tetanus Vaccination: Yes Hx Pneumococcal Vaccination: 11/22/09 Review of Systems - Review of Systems Notes: Review HPI for review of systems., All other systems negative Constitutional: Fever Physical Exam - Vital signs Vitals: Temp Pulse Resp BP Pulse Ox 103 F H 101 H 20 180/89 H 99 02/20/20 16:01 02/20/20 16:01 02/20/20 16:01 02/20/20 16:01 02/20/20 16:01 - Notes Notes: Full physical exam could not be performed due to COVID-19 isolation protocol - General General appearance: Appears well, Alert In distress: None - HEENT Head: Normocephalic Eyes: Normal Conjunctiva: Normal Extraocular movements intact: Yes Mouth/Lips: Normal Mucous membranes: Normal, Moist Pharynx: Normal. No: Erythema Neck: Normal, Supple. No: Lymphadenopathy - Respiratory Respiratory status: No respiratory distress Chest status: Nontender Breath sounds: Normal Chest palpation: Normal - Cardiovascular Rhythm: Regular - Abdominal Inspection: Normal Tenderness: Nontender - Extremities General upper extremity: Normal ROM General lower extremity: Normal ROM - Neurological Neuro grossly intact: Yes Cognition: Normal Orientation: AAOx4 [place] Coma Scale Eye Opening: Spontaneous [place] Coma Scale Verbal: Oriented [place] Coma Scale Motor: Obeys Commands [place] Coma Scale Total: 15 Speech: Normal - Psychological Associated symptoms: Normal affect - Skin Skin Temperature: Warm Skin Moisture: Dry Skin Color: Normal Course - Re-evaluation Re-evalutation: 02/20/20 16:02 64-year-old female with history of diabetes high blood pressure high cholesterol presents to the emergency department with complaints of fever and productive cough with yellow sputum for approximately 1 week. She reports that she has been on antibiotics since last week. She reports she has 1 more dose left tomorrow. She reports she is eating and drinking without problems. Complains of some right hip pain because her right knee gave out last week and she tom her right hip. She is taking her usual pain medication, Percocet, for this pain. Labs are unremarkable no elevated white count, creatinine is 1.45, urine is unremarkable. Chest x-ray is negative for pneumonia. Patient's temperature has decreased to 99.7 with a heart rate of 91. Patient again reports " I don't even feel sick " She is drinking PO fluids without problems. Patient received Tylenol and Motrin while she was here. She was instructed on viral illness. Instructed to continue antibiotics and monitor her temperature. she was instructed Tylenol Motrin as indicated. She was also instructed to follow-up with Dr. Horne tomorrow for recheck. She verbalized understanding to all instructions. Laboratory 02/20/20 02/20/20 02/20/20 16:05 16:29 16:29 WBC 4.7 RBC 4.87 Hgb 12.1 Hct 36.4 MCV 75 L MCH 24.8 L MCHC 33.1 RDW 16.1 H Plt Count 203 Lymph % (Auto) 26.8 [place] % (Auto) 10.9 Eos % (Auto) 0.1 Baso % (Auto) 0.4 Absolute Neuts (auto) 2.9 Absolute Lymphs (auto) 1.3 Absolute Monos (auto) 0.5 Absolute Eos (auto) 0.0 Absolute Basos (auto) 0.0 Seg Neutrophils % 61.8 Sodium 138.3 Potassium 4.4 Chloride 99 Carbon Dioxide 29 Anion Gap 10 BUN 20 Creatinine 1.45 H Est GFR ( Amer) 44 L Est GFR (MDRD) Non-Af 36 L Glucose 135 H Lactic Acid Calcium 9.3 Total Bilirubin 0.4 Direct Bilirubin 0.3 Neonat Total Bilirubin Not Reportable Neonat Direct Bilirubin Not Reportable Neonat Indirect Bili Not Reportable AST 30 ALT 32 Alkaline Phosphatase 81 Total Protein 7.6 Albumin 4.0 Urine Color Urine Appearance Urine pH Ur Specific [place] Urine Protein Urine Glucose (UA) Urine Ketones Urine Blood Urine Nitrite (Reflex) Urine Bilirubin Urine Urobilinogen Leukocyte Esterase Rfl Urine RBC (Auto) U Hyaline Cast (Auto) Urine WBC (Reflex) Squamous Epi Cells Auto Urine Mucus (Auto) Urine Ascorbic Acid Influenza A (Rapid) NEGATIVE Influenza B (Rapid) NEGATIVE 02/20/20 02/20/20 16:29 16:35 WBC RBC Hgb Hct MCV MCH MCHC RDW Plt Count Lymph % (Auto) [place] % (Auto) Eos % (Auto) Baso % (Auto) Absolute Neuts (auto) Absolute Lymphs (auto) Absolute Monos (auto) Absolute Eos (auto) Absolute Basos (auto) Seg Neutrophils % Sodium Potassium Chloride Carbon Dioxide Anion Gap BUN Creatinine Est GFR ( Amer) Est GFR (MDRD) Non-Af Glucose Lactic Acid 1.8 Calcium Total Bilirubin Direct Bilirubin Neonat Total Bilirubin Neonat Direct Bilirubin Neonat Indirect Bili AST ALT Alkaline Phosphatase Total Protein Albumin Urine Color YELLOW Urine Appearance CLEAR Urine pH 5.0 Ur Specific [place] 1.018 Urine Protein NEGATIVE Urine Glucose (UA) NEGATIVE Urine Ketones NEGATIVE Urine Blood NEGATIVE Urine Nitrite (Reflex) NEGATIVE Urine Bilirubin NEGATIVE Urine Urobilinogen NEGATIVE Leukocyte Esterase Rfl NEGATIVE Urine RBC (Auto) 1 U Hyaline Cast (Auto) 1 Urine WBC (Reflex) < 1 Squamous Epi Cells Auto 2 Urine Mucus (Auto) OCC Urine Ascorbic Acid NEGATIVE Influenza A (Rapid) Influenza B (Rapid) Chest X-Ray 02/20/20 15:57 IMPRESSION: NO ACUTE RADIOGRAPHIC FINDING IN THE CHEST. 02/20/20 18:20 - Vital Signs Vital signs: Temp Pulse Resp BP Pulse Ox 99.6 F 91 18 138/76 H 94 02/20/20 18:02 02/20/20 18:08 02/20/20 18:08 02/20/20 18:08 02/20/20 18:08 - Laboratory Result Diagrams: 02/20/20 16:29 02/20/20 16:29 Laboratory results interpreted by me: 02/20/20 02/20/20 16:29 16:29 MCV 75 L MCH 24.8 L RDW 16.1 H Creatinine 1.45 H Est GFR ( Amer) 44 L Est GFR (MDRD) Non-Af 36 L Glucose 135 H - Diagnostic Test Radiology reviewed: Image reviewed, Reports reviewed Discharge - Discharge Clinical Impression: Cough, Viral illness Fever Qualifiers: Fever type: unspecified Qualified Code(s): R50.9 - Fever, unspecified Condition: Stable Disposition: HOME, SELF-CARE Instructions: Acetaminophen, Fever ([facility]), Viral Syndrome ([facility]) Additional Instructions: *You have been evaluated for a fever, cough, viral illness *Your flu test was negative today. Your chest x-ray did not show any pneumonia *Continue to take antibiotics as prescribed by Dr. Horne *Increase fluids, wash your hands well, longterm in place and practice social distancing *Monitor your temperature, take Tylenol or Motrin as indicated for fever *Follow up with Dr. Horne tomorrow *Return to ED for worsening condition, changes, needs, increasing fever, worsening cough, difficulty breathing, concerns Monitor your blood pressure. Your blood pressure was elevated today. This may be because you were anxious, in pain or because you need medication. It is important to follow up with your primary care provider for full evaluation. Forms: Elevated Blood Pressure Referrals: CIRA HORNE MD [Primary Care Provider] - Follow up tomorrow
--- NOTE | 2020-02-20 16:32 | RADIOLOGY REPORT (SQ) ---
EXAM DESCRIPTION: CHEST SINGLE VIEW IMAGES COMPLETED DATE/TIME: 02/20/2020 4:18 pm REASON FOR STUDY: cough fever COMPARISON: 06/16/2011 EXAM PARAMETERS: NUMBER OF VIEWS: One view. TECHNIQUE: Single frontal radiographic view of the chest acquired. RADIATION DOSE: NA LIMITATIONS: None. FINDINGS: LUNGS AND PLEURA: No opacities, masses or pneumothorax. No pleural effusion. MEDIASTINUM AND HILAR STRUCTURES: No masses. Contour normal. HEART AND VASCULAR STRUCTURES: Heart size is stable. No failure. BONES: No acute findings. HARDWARE: None in the chest. OTHER: No other significant finding. IMPRESSION: NO ACUTE RADIOGRAPHIC FINDING IN THE CHEST. TECHNICAL DOCUMENTATION: JOB ID: [id number] 2010 [employer]- All Rights Reserved Reading location - IP/workstation name: [email or web address]
[2020-02-20 16:37] LABS: A TYPE INFLUENZA AG NEGATIVE (NEGATIVE); B INFLUENZA AG NEGATIVE (NEGATIVE)
[2020-02-20 16:51] LABS: ABSOLUTE LYMPHOCYTES (AUTO) 1.3 10^3/uL (0.5-4.7); ABSOLUTE MONOCYTES (AUTO) 0.5 10^3/uL (0.1-1.4); ABSOLUTE NEUT (AUTO) 2.9 10^3/uL (1.7-8.2); BASOPHILS % (AUTO) 0.4 % (0-2); EOSINOPHILS % (AUTO) 0.1 % (0-6); HEMATOCRIT 36.4 % (36.0-47.0); HEMOGLOBIN 12.1 g/dL (12.0-15.5); LYMPHOCYTES % (AUTO) 26.8 % (13-45); MEAN CORPUSCULAR HEMOGLOBIN 24.8 pg (27.0-33.4); MEAN CORPUSCULAR HGB CONC 33.1 g/dL (32.0-36.0); MEAN CORPUSCULAR VOLUME 75 fl (80-97); MONOCYTES % (AUTO) 10.9 % (3-13); PLATELET COUNT 203 10^3/uL (150-450); RED BLOOD COUNT 4.87 10^6/uL (3.72-5.28); RED CELL DISTRIBUTION WIDTH 16.1 % (11.5-14.0); SEGMENTED NEUTROPHILS % (AUTO) 61.8 % (42-78); TOTAL CELLS COUNTED % (AUTO) 100 %; WHITE BLOOD COUNT 4.7 10^3/uL (4.0-10.5)
[2020-02-20 17:02] LABS: APPEARANCE,URINE CLEAR; BILIRUBIN,URINE NEGATIVE (NEGATIVE); COLOR,URINE YELLOW; GLUCOSE, URINE NEGATIVE (NEGATIVE); KETONES,URINE NEGATIVE (NEGATIVE); PROTEIN,URINE NEGATIVE (NEGATIVE); URINE SPECIFIC GRAVITY 1.018; UROBILINOGEN,URINE NEGATIVE mg/dL (<2.0)
[2020-02-20] MEDS ORDERED: IBUPROFEN 800 MG TABLET PO ONE (17:02)
[2020-02-20 17:08] LABS: ALKALINE PHOSPHATASE 81 U/L (38-126); ANION GAP 10 (5-19); ASPARTATE AMINO TRANSFERASE 30 U/L (14-36); BILIRUBIN,DIRECT 0.3 mg/dL (0.0-0.4); BILIRUBIN,TOTAL 0.4 mg/dL (0.2-1.3); BLOOD UREA NITROGEN 20 mg/dL (7-20); CALCIUM 9.3 mg/dL (8.4-10.2); CARBON DIOXIDE 29 mmol/L (22-30); CHLORIDE 99 mmol/L (98-107); GLUCOSE 135 mg/dL (75-110); POTASSIUM 4.4 mmol/L (3.6-5.0); TOTAL PROTEIN 7.6 g/dL (6.3-8.2)
[2020-02-20 18:10] VITALS: BP 138/76
== END 2020-02-20 18:25 | disposition home or self-care (01) ==
LOC: ER 15:48
DX: B34.9 Viral infection, unspecified (principal); R05 Cough; R50.9 Fever, unspecified; M25.551 Pain in right hip; I10 Essential (primary) hypertension; J45.909 Unspecified asthma, uncomplicated; E11.9 Type 2 diabetes mellitus without complications; M54.9 Dorsalgia, unspecified; G89.29 Other chronic pain; Z79.891 Long term (current) use of opiate analgesic; Z88.6 Allergy status to analgesic agent; Z91.040 Latex allergy status; Z88.5 Allergy status to narcotic agent
CPT/HCPCS: 99283; 36415; 83605; 85025; 80053; 81001; 87804; 71045; A9270 ×2

== ENCOUNTER → 2020-11-27 | Outpatient (CLI) | payer MEDICARE ==
--- NOTE | 2020-11-27 12:14 | WOMENS IMAGING REPORT ---
EXAM DESCRIPTION: BILAT SCREENING MAMMO W/CAD IMAGES COMPLETED DATE/TIME: 11/27/2020 11:34 am REASON FOR STUDY: ROUTINE SCREENING MAMMOGRAM Z12.31 Z12.31 ENCNTR SCREEN MAMMOGRAM FOR MALIGNANT N EOPLASM OF [place]ANG[place]INA COMPARISON: 12/27/2018, 10/09/2013, EXAM PARAMETERS: Standard craniocaudal and mediolateral oblique views of each breast recorded using digital acquisition. Read with the assistance of CAD. .[facility] - [facility] [employer] Version 9.2 LIMITATIONS: None. FINDINGS: Findings present which are benign by mammographic criteria. No suspicious masses, calcifi cations or architectural distortion. Pertinent benign findings: Diminished size of a previously characterized left outer breast cysts. Benign mammographic findings may include one or more of the following: Smooth masses, popcorn/rim/co arse calcifications, asymmetries, post-procedure changes, and lesions with long-standing stability. IMPRESSION: BENIGN MAMMOGRAPHIC FINDINGS. BIRADS 2 BREAST DENSITY: a. The breasts are almost entirely fatty. BIRAD: ASSESSMENT: 2 BENIGN FINDING(S) RECOMMENDATION: ROUTINE SCREENING COMMENT: The patient has been notified of the results by letter per [place] requirements. Additional no tification policies are in place for contacting patient with suspicious or incomplete findings. Quality ID #[id number]: The [employer] recommends an annual screening mammogram for women aged 40 years or over. This facility utilizes a reminder system to ensure that all patients receive reminder letters, and/or direct phone calls for appointments. This includes reminders for routine scr eening mammograms, diagnostic mammograms, or other Breast Imaging Interventions when appropriate. Th is patient will be placed in the appropriate reminder system. TECHNICAL DOCUMENTATION: FINDING NUMBER: (1) ASSESSMENT: (1) JOB ID: [id number] 2010 [employer]- All Rights Reserved Reading location - IP/workstation name: [email or web address]
== END ==
LOC: WI 11:06
PROVIDERS: ATTEND Internal Medicine
DX: Z12.31 Encounter for screening mammogram for malignant neoplasm of breast (principal)
CPT/HCPCS: 77067